=== PATIENT | male | born 1940 | race Caucasian/White ===

== ENCOUNTER 2016-10-12 19:52 | Emergency (ER) | payer OTHER, MEDICARE ==
[~2016-10-12] VITALS: Ht 180.3 cm; Wt 95.4 kg
[~2016-10-12 19:52] MED LIST: AMLODIPINE BESY10 MG PO; ATORVASTATIN CA40 MG PO; BILBERRY100 MG PO; BRILINTA90 MG PO; CO Q-10100 MG PO; HYDROCHLOROTH12.5 M3 PO; HYDROCHLOROTHIA25 MG PO; LISINOPRIL20 MG PO; LISINOPRIL5 MG PO; LOPRESSOR25 MG PO; MAGNESIUM400 M1 PO; NITROSTAT0.4 MG SL; PANTOPRAZOLE SO40 MG PO; PRILOSEC OTC20 MG PO; SELENIUM100 MICROG PO; ST. JOSEPH ASPI81 MG PO; VITAMIN C1000 MG PO; VITAMIN D31000 UNIT PO; XOPENEX HF200 INHALA IH
[2016-10-12 20:30] LABS: HEMATOCRIT 41.3 % (38.0-50.0); MCH 32.7 PG (29.0-34.0); MCHC 34.1 G/DL (30.0-36.0); MCV 95.8 FL (86-99); MEAN PLAT.VOLUME 12.1 uM^3 (9.0-12.4); PLATELET COUNT 119 K/uL (156-360); RBC DIS.WIDTH-CV 11.5 % (11.8-14.6); RBC DIS.WIDTH-SD 39.1 % (39-53); RED BLOOD COUNT 4.31 M/uL (4.00-5.50); WHITE BLOOD COUNT 7.4 K/uL (4.1-10.2)
[2016-10-12 20:38] LABS: CHLORIDE 108 mEq/L (99-109); INTER. NORMALIZED RATIO 1.1; POTASSIUM 4.2 mEq/L (3.7-5.4); PROTHROMBIN TIME 11.5 (9.2-11.2); PTT 27.1 (25-32); SODIUM 144 mEq/L (136-147)
[2016-10-12 20:40] LABS: GLUCOSE 126 mg/dL (70-99)
[2016-10-12 20:41] LABS: BILIRUBIN NEGATIVE; BLOOD LARGE; COLOR BLOODY ((YELLOW)); GLUCOSE (STRIP) NEGATIVE; KETONES NEGATIVE; PROTEIN (STRIP) >=2000; SPECIFIC GRAVITY 1.025 (1.000-1.030); UROBILINOGEN 0.2 MG/DL (0.2-1.0)
[2016-10-12 20:41] LABS: ANION GAP 12 MEQ/L (2-14)
[2016-10-12 20:42] LABS: ADD MIUA? YES; LEUKOCYTES NEGATIVE; NITRITE NEGATIVE
[2016-10-12 20:43] LABS: GFR ESTIMATE (CALCULATED) > 59 mL/min/
[2016-10-12 20:44] LABS: UREA NITROGEN (BUN) 25 mg/dL (9-23)
[2016-10-12 20:46] LABS: RED BLOOD CELLS TNTC /HPF (0-5)
[2016-10-12 20:47] LABS: BACTERIA NONE SEEN /HPF; EPITHELIAL CELLS NONE SEEN /HPF; MUCUS NONE SEEN /LPF; UCUL ADDED? NO
[2016-10-12 22:47] VITALS: BP 171/89
== END 2016-10-12 22:48 | disposition home or self-care (01) ==
LOC: EME 19:52
DX: R31.9 Hematuria, unspecified (principal); R80.9 Proteinuria, unspecified; J45.909 Unspecified asthma, uncomplicated; I10 Essential (primary) hypertension; I25.2 Old myocardial infarction; K21.9 Gastro-esophageal reflux disease without esophagitis; Z79.82 Long term (current) use of aspirin; Z87.891 Personal history of nicotine dependence
CPT/HCPCS: 80048; 81003; 82040; 85027; 85610; 85730; 99281; 99283

== ENCOUNTER 2017-01-15 05:29 | Emergency (ER) | payer OTHER, MEDICARE ==
[~2017-01-15] VITALS: Ht 180.3 cm; Wt 91.2 kg
[2017-01-15 06:01] LABS: HEMATOCRIT 42.7 % (38.0-50.0); MCH 31.7 PG (29.0-34.0); MCHC 34.2 G/DL (30.0-36.0); MCV 92.6 FL (86-99); MEAN PLAT.VOLUME 12.1 uM^3 (9.0-12.4); PLATELET COUNT 102 K/uL (156-360); RBC DIS.WIDTH-CV 11.5 % (11.8-14.6); RBC DIS.WIDTH-SD 38.9 % (39-53); RED BLOOD COUNT 4.61 M/uL (4.00-5.50); WHITE BLOOD COUNT 6.8 K/uL (4.1-10.2)
[2017-01-15 06:12] LABS: CHLORIDE 102 mEq/L (99-109); POTASSIUM 3.7 mEq/L (3.7-5.4); SODIUM 135 mEq/L (136-147)
[2017-01-15 06:14] LABS: GLUCOSE 119 mg/dL (70-99)
[2017-01-15 06:15] LABS: ANION GAP 12 MEQ/L (2-14)
[2017-01-15 06:16] LABS: TOTAL BILIRUBIN 0.7 mg/dL (0.0-1.0)
[2017-01-15 06:18] LABS: ALKALINE PHOSPHATASE 46 IU/L (3-129); GFR ESTIMATE (CALCULATED) > 59 mL/min/
[2017-01-15 06:19] LABS: UREA NITROGEN (BUN) 19 mg/dL (9-23)
[2017-01-15 06:21] LABS: LIPASE 13 U/L (1.0-51.0)
[2017-01-15 06:27] LABS: TROP-I INTERPRETATION NEGATIVE; TROPONIN-I 0.03 ng/mL (0.0-0.30)
[2017-01-15 09:33] LABS: ADD MIUA? YES; BILIRUBIN NEGATIVE; BLOOD SMALL; COLOR YELLOW ((YELLOW)); GLUCOSE (STRIP) NEGATIVE; KETONES NEGATIVE; LEUKOCYTES NEGATIVE; NITRITE NEGATIVE; PROTEIN (STRIP) 30; SPECIFIC GRAVITY 1.023 (1.000-1.030); UROBILINOGEN 0.2 MG/DL (0.2-1.0)
[2017-01-15 09:37] LABS: BACTERIA NONE SEEN /HPF; EPITHELIAL CELLS NONE SEEN /HPF; MUCUS 1+ /LPF; RED BLOOD CELLS 0-5 /HPF (0-5); UCUL ADDED? NO; WHITE BLOOD CELLS 0-5 /HPF (0-5)
[2017-01-15 09:54] LABS: C DIFF TOXIN NEGATIVE (NEGATIVE)
[2017-01-15 09:56] LABS: PROBE CHECK PASS; SPECIMEN PROCESSING CONTROL PASS
[2017-01-15 10:24] VITALS: BP 135/72
== END 2017-01-15 10:26 | disposition home or self-care (01) ==
LOC: EME 05:29
PROVIDERS: Emergency Medicine
DX: R19.7 Diarrhea, unspecified (principal); R05 Cough; I10 Essential (primary) hypertension; I25.2 Old myocardial infarction; K21.9 Gastro-esophageal reflux disease without esophagitis; Z87.891 Personal history of nicotine dependence
CPT/HCPCS: 71020; 80053; 81003; 83690; 84484; 85027; 87045; 87077; 87493; 87506; 93005; 99281; 99285; J7030

== ENCOUNTER 2017-09-18 08:37 | Day surgery (SDC) | payer OTHER, MEDICARE ==
[~2017-09-18] VITALS: Ht 177.8 cm; Wt 92.7 kg
[~2017-09-18 08:37] MED LIST changes: +COQ-10100 MG PO; +FLOMAX0.4 MG PO; +LIPITOR20 MG PO; +LISINOPRIL10 MG PO; +LUTEIN20 MG PO; +VITAMIN B COMP1 EACH PO; +ZINC30 M1 PO
[2017-09-18 20:15] VITALS: BP 150/82
[2017-09-18 20:24] LABS: BASOPHIL (%) 0.9 % (0-1); BASOPHIL COUNT 0.1 K/uL (0-0.1); EOSINOPHIL (%) 1.9 % (0-5); EOSINOPHIL COUNT 0.1 K/uL (0-0.3); HEMATOCRIT 39.4 % (38.0-50.0); HEMOGLOBIN 13.5 G/DL (12.5-16.6); IMMATURE GRANULOCYTE (%) 0.3 % (0.0-0.7); LYMPHOCYTE (%) 18.5 % (15-42); LYMPHOCYTE COUNT 1.4 K/uL (1.0-2.8); MCH 32.9 PG (29.0-34.0); MCHC 34.3 G/DL (30.0-36.0); MCV 96.1 FL (86-99); MONOCYTE (%) 10.5 % (3-12); MONOCYTE COUNT 0.8 K/uL (0-0.8); NEUTROPHIL (%) 67.9 % (45-76); NEUTROPHIL COUNT 5.1 K/uL (1.8-6.4); PLATELET COUNT 127 K/uL (156-360); RBC DIS.WIDTH-CV 11.6 % (11.8-14.6); RBC DIS.WIDTH-SD 40.8 % (39-53); WHITE BLOOD COUNT 7.4 K/uL (4.1-10.2)
[2017-09-18 23:30] VITALS: BP 140/85
[2017-09-19 04:30] VITALS: BP 161/83
[2017-09-19 04:41] LABS: BASOPHIL COUNT 0.1 K/uL (0-0.1); EOSINOPHIL (%) 3.3 % (0-5); EOSINOPHIL COUNT 0.2 K/uL (0-0.3); HEMATOCRIT 37.9 % (38.0-50.0); HEMOGLOBIN 13.1 G/DL (12.5-16.6); IMMATURE GRANULOCYTE (%) 0.3 % (0.0-0.7); LYMPHOCYTE (%) 22.6 % (15-42); LYMPHOCYTE COUNT 1.5 K/uL (1.0-2.8); MCH 33.5 PG (29.0-34.0); MCHC 34.6 G/DL (30.0-36.0); MCV 96.9 FL (86-99); MONOCYTE COUNT 0.9 K/uL (0-0.8); NEUTROPHIL (%) 59.8 % (45-76); PLATELET COUNT 110 K/uL (156-360); RBC DIS.WIDTH-CV 11.5 % (11.8-14.6); RBC DIS.WIDTH-SD 40.6 % (39-53); RED BLOOD COUNT 3.91 M/uL (4.00-5.50); WHITE BLOOD COUNT 6.7 K/uL (4.1-10.2)
[2017-09-19 04:52] LABS: CHLORIDE 106 mEq/L (99-109); POTASSIUM 4.2 mEq/L (3.7-5.4); SODIUM 140 mEq/L (136-147)
[2017-09-19 04:54] LABS: GLUCOSE 92 mg/dL (70-99)
[2017-09-19 04:58] LABS: CREATININE 0.8 mg/dL (0.6-1.3); GFR ESTIMATE (CALCULATED) > 59 mL/min/ (58.99-99999)
[2017-09-19 04:59] LABS: UREA NITROGEN (BUN) 15 mg/dL (9-23)
[2017-09-19 07:44] VITALS: BP 174/85
[2017-09-19 11:33] VITALS: BP 157/76
[2017-09-19] MEDS ORDERED: CLOPIDOGREL75 MG PO (15:22)
[2017-09-19] MEDS ORDERED: PRAVASTATIN SOD80 MG PO (15:22)
[2017-09-19] MEDS ORDERED: ASPIRIN EC325 MG PO (15:23)
== END 2017-09-19 15:59 | disposition home or self-care (01) ==
LOC: CATH 08:37 → 2SOUTH 12:02 → 4EAST 12:02 → 2SOUTH 12:02 → ENRESERV 12:05 → 4EAST 19:50
PROVIDERS: Internal Medicine Cardiovascular Disease
DX: I25.10 Atherosclerotic heart disease of native coronary artery without angina pectoris (principal); Z95.5 Presence of coronary angioplasty implant and graft; I10 Essential (primary) hypertension; E78.5 Hyperlipidemia, unspecified; I25.2 Old myocardial infarction; Z79.02 Long term (current) use of antithrombotics/antiplatelets; R31.9 Hematuria, unspecified
CPT/HCPCS: 80048; 85025; 85347; 93005; C1725; C1769; C1874; C1887; C1894; G0378; J1644; J2250; J3010; J3246; J7030